=== PATIENT | female | born 1975 | race Caucasian/White ===

== ENCOUNTER 2022-02-16 19:56 | Emergency (ER) | payer SELFPAY ==
[~2022-02-16] VITALS: Ht 162.6 cm; Wt 73.5 kg
[2022-02-16 20:06] VITALS: BP 115/68
--- NOTE | 2022-02-16 21:26 | NUR ---
pt given sandwich and juice
== END 2022-02-16 21:35 | disposition home or self-care (01) ==
LOC: ER 19:56
DX: E86.0 Dehydration (principal); Z88.0 Allergy status to penicillin; Z88.8 Allergy status to other drugs, medicaments and biological substances
CPT/HCPCS: 93005; 99283